=== PATIENT | female | born 1970 | race Caucasian/White ===

== ENCOUNTER → 2016-07-26 | Outpatient (CLI) | payer OTHER ==
--- NOTE | 2016-07-26 16:02 | MM ---
Reason for exam: history of breast augmentation, asymptomatic. Last mammogram was performed 5 months ago. History: Silicone gel implants in both breasts, September 2011. Took hormonal contraceptives for 1 year. Physical Findings: Nurse did not find any significant physical abnormalities on exam. MG 3D Diag Mammo Imp W/Cad KIRTI Bilateral CC, MLO, and ID view(s) were taken. Prior study comparison: February 19, 2016, right breast MG 3d diag mammo imp w/cad RT. July 21, 2015, bilateral MG 3d diag mammo imp w/cad KIRTI. The breast tissue is heterogeneously dense. This may lower the sensitivity of mammography. No suspicious calcifications are seen. There is chronic nodularity in the right breast, stable. Stable left axillary lymph node. These results were verbally communicated with the patient and result sheet given to the patient on 07/26/16. ASSESSMENT: Benign, BI-RAD 2 RECOMMENDATION: Routine screening mammogram of both breasts in 1 year.
== END | disposition home or self-care (01) ==
LOC: RADMAMWWP 14:53
PROVIDERS: ATTEND Obstetrics & Gynecology
DX: R92.8 Other abnormal and inconclusive findings on diagnostic imaging of breast (principal); Z98.82 Breast implant status
CPT/HCPCS: G0204; G0279

== ENCOUNTER → 2017-08-18 | Outpatient (CLI) | payer OTHER ==
--- NOTE | 2017-08-19 12:11 | MM ---
Reason for exam: screening (asymptomatic). Last mammogram was performed 1 year and 1 month ago. History: Silicone gel implants in both breasts, September 2011. Took hormonal contraceptives for 1 year. Physical Findings: A clinical breast exam by your physician is recommended on an annual basis and results should be correlated with mammographic findings. MG 3D Screen Mammo Imp/Cad Bilateral CC and MLO view(s) were taken. Prior study comparison: July 26, 2016, bilateral MG 3d diag mammo imp w/cad KIRTI. February 19, 2016, right breast MG 3d diag mammo imp w/cad RT. There are scattered fibroglandular densities. Finding: There is a 6 mm high density, obscured oval mass in the lower inner quadrant of the left breast consistent with 3cm possible cyst. There is a chronic nodularity bilaterally. New finding since July 26, 2016 and February 19, 2016. ASSESSMENT: Incomplete: need additional imaging evaluation, BI-RAD 0 RECOMMENDATION: Ultrasound of the left breast. [facility] will attempt to contact patient to return for ultrasound.
== END | disposition home or self-care (01) ==
LOC: RADMAMWWP 07:05
PROVIDERS: ATTEND Obstetrics & Gynecology
DX: Z12.31 Encounter for screening mammogram for malignant neoplasm of breast (principal)
CPT/HCPCS: 77063; 77067

== ENCOUNTER → 2017-08-27 | Outpatient (CLI) | payer OTHER ==
--- NOTE | 2017-08-28 11:00 | USB ---
Reason for exam: additional evaluation requested from abnormal screening. History: Silicone gel implants in both breasts, September 2011. Took hormonal contraceptives for 1 year. Physical Findings: Nurse did not find any significant physical abnormalities on exam. US Breast Workup LT Right complete breast ultrasound includes all four quadrants, the retroareolar region and axilla. Finding demonstrates a 1.0 x 0.5 x 0.8cm node at 1 o'clock, a 0.4 x 0.2 x 0.4cm mixed lesion at 3 o'clock, a 0.6 x 0.5 x 0.5cm cystic cluster at 4 o'clock and a 0.8 x 0.4 x 0.6cm cystic cluster at 8 o'clock. These results were verbally communicated with the patient and result sheet given to the patient on 08/27/17. ASSESSMENT: Probably benign, BI-RAD 3 RECOMMENDATION: Ultrasound of the left breast in 6 months.
== END | disposition home or self-care (01) ==
LOC: RADUSWWP 15:41
PROVIDERS: ATTEND Obstetrics & Gynecology
DX: R92.8 Other abnormal and inconclusive findings on diagnostic imaging of breast (principal)

== ENCOUNTER → 2018-09-28 | Outpatient (CLI) | payer OTHER ==
--- NOTE | 2018-09-28 07:39 | MM ---
Reason for exam: additional evaluation requested from prior study. Last mammogram was performed 1 year and 1 month ago. History: Silicone gel implants in both breasts, September 2011. Took hormonal contraceptives for 1 year. Physical Findings: Nurse did not find any significant physical abnormalities on exam. MG 3D Diag Mammo Imp W/Cad KIRTI Bilateral CC, MLO, and ID view(s) were taken. Prior study comparison: August 18, 2017, bilateral MG 3d screen mammo imp/cad. July 26, 2016, bilateral MG 3d diag mammo imp w/cad KIRTI. There is chronic nodularity bilaterally. No significant new findings when compared with previous films. These results were verbally communicated with the patient and result sheet given to the patient on 09/28/18. ASSESSMENT: Benign, BI-RAD 2 RECOMMENDATION: Follow-up diagnostic mammogram of both breasts in 1 year.
== END | disposition home or self-care (01) ==
LOC: RADMAMWWP 06:53
PROVIDERS: ATTEND Obstetrics & Gynecology
DX: R92.8 Other abnormal and inconclusive findings on diagnostic imaging of breast (principal)
CPT/HCPCS: 77062; 77066

== ENCOUNTER → 2020-01-17 | Outpatient (CLI) | payer OTHER ==
--- NOTE | 2020-01-17 14:31 | MM ---
Reason for exam: additional evaluation requested from prior study. Last mammogram was performed 1 year and 4 months ago. History: Silicone gel implants in both breasts, September 2011. Took hormonal contraceptives for 1 year. Physical Findings: Nurse did not find any significant physical abnormalities on exam. MG 3D Diag Mammo Imp W/Cad KIRTI Bilateral CC, MLO, and ID view(s) were taken. Prior study comparison: September 28, 2018, bilateral MG 3d diag mammo imp w/cad [facility]. August 18, 2017, bilateral MG 3d screen mammo imp/cad. The breast tissue is heterogeneously dense. This may lower the sensitivity of mammography. There is chronic nodularity bilaterally. There is no discrete abnormality. Benign bilateral axillary lymph nodes redemonstrated. Bilateral subpectoral implants redemonstrated. These results were verbally communicated with the patient and result sheet given to the patient on 01/17/20. ASSESSMENT: Benign, BI-RAD 2 RECOMMENDATION: Routine screening mammogram of both breasts in 1 year.
== END | disposition home or self-care (01) ==
LOC: RADMAMWWP 12-16 11:55
PROVIDERS: ATTEND Obstetrics & Gynecology
DX: R92.8 Other abnormal and inconclusive findings on diagnostic imaging of breast (principal)
CPT/HCPCS: 77062; 77066

== ENCOUNTER 2020-02-22 10:13 | Day surgery (SDC) | payer OTHER ==
[2020-02-21 11:41] VITALS: BMI 26.4
[~2020-02-22 10:13] MED LIST: LACTATED RINGERS 1,000 ML IV SCH; LIDOCAINE 1% (10MG/ML) FOR IV START INTRADERMA PRN
[2020-02-22 11:19] VITALS: TEMP 98.1
[2020-02-22] MEDS ORDERED: LIDOCAINE 1% INJ 10MG/ML (20 ML MDV) ONE (11:59)
[2020-02-22] MEDS ORDERED: PROPOFOL 10 MG/ML 20 ML VIAL IV ONE (11:59)
--- NOTE | 2020-02-22 12:30 | P.PCN ---
Date of Procedure: 02/22/20 Description of Procedure: BRIEF HISTORY: Patient is a 49-year-old female presenting for outpatient colonoscopy for screening for malignant neoplasm of the colon. No prior colonoscopy. No change in bowel habits or blood per rectum. PROCEDURE PERFORMED: Colonoscopy. PREOPERATIVE DIAGNOSIS: Screening for malignant neoplasm of the colon, no prior colonoscopy. ESTIMATED BLOOD LOSS: Minimal. IV sedation per Anesthesia. PROCEDURE: After informed consent was obtained, the patient, was brought into the endoscopy unit. IV sedation was administered by Anesthesia under continuous monitoring. Digital rectal examination was normal. Initially the Olympus CF-190 flexible video colonoscope was then inserted in the rectum, gradually advanced into the cecum without any difficulty. Careful examination was performed as the scope was gradually being withdrawn. Ileocecal valve and the appendiceal orifice were visualized and appeared normal. Prep was excellent. Mucosa of the cecum, ascending colon, transverse colon, descending colon, sigmoid colon, and rectum appeared normal, with scattered diverticula noted in the sigmoid colon. Normal- appearing terminal ileum. Colon was somewhat tortuous. Retroflexion was performed in the rectum and no lesions were seen. The patient tolerated the pr ocedure well. IMPRESSION: Normal-appearing colon from rectum to cecum. Mild sigmoid diverticulosis. RECOMMENDATIONS: Findings of this examination were discussed with the patient and her family. Okay to resume diet. Okay to resume medications. Recommendation is for repeat colonoscopy in 10 years for screening for malignant neoplasm of the colon, or sooner if signs or symptoms which warrant further evaluation developed.
[2020-02-22 12:52] VITALS: BP 122/81; PULSE 56; RESP 18
== END 2020-02-22 13:09 | disposition home or self-care (01) ==
LOC: ORWHC2ENDO 10:13
PROVIDERS: ATTEND Internal Medicine
DX: Z12.11 Encounter for screening for malignant neoplasm of colon (principal); K57.30 Diverticulosis of large intestine without perforation or abscess without bleeding; Q43.8 Other specified congenital malformations of intestine; K21.9 Gastro-esophageal reflux disease without esophagitis; Z87.891 Personal history of nicotine dependence; Z88.8 Allergy status to other drugs, medicaments and biological substances; Z98.890 Other specified postprocedural states; Z87.19 Personal history of other diseases of the digestive system; Z90.89 Acquired absence of other organs
CPT/HCPCS: 81025; J2001; J2704; G0121

== ENCOUNTER → 2021-04-16 | Outpatient (CLI) | payer OTHER ==
--- NOTE | 2021-04-17 10:48 | MM ---
Reason for exam: screening (asymptomatic). Last mammogram was performed 1 year and 3 months ago. History: Silicone gel implants in both breasts, September 2011. Took hormonal contraceptives for 1 year. Physical Findings: A clinical breast exam by your physician is recommended on an annual basis and results should be correlated with mammographic findings. MG 3D Screen Mammo Imp/Cad Bilateral CC, MLO, and ID view(s) were taken. Prior study comparison: January 17, 2020, bilateral MG 3d diag mammo imp w/cad KIRTI. September 28, 2018, bilateral MG 3d diag mammo imp w/cad KIRTI. The breast tissue is heterogeneously dense. This may lower the sensitivity of mammography. There is no discrete abnormality. Implants are intact. No significant changes when compared with prior studies. ASSESSMENT: Negative, BI-RAD 1 RECOMMENDATION: Routine screening mammogram of both breasts in 1 year.
== END | disposition home or self-care (01) ==
LOC: RADMAMWWP 16:08
PROVIDERS: ATTEND Obstetrics & Gynecology
DX: Z12.31 Encounter for screening mammogram for malignant neoplasm of breast (principal); Z98.82 Breast implant status
CPT/HCPCS: 77063; 77067

== ENCOUNTER → 2022-04-17 | Outpatient (CLI) | payer OTHER ==
--- NOTE | 2022-04-17 13:42 | MM ---
Reason for Exam: Screening (asymptomatic). Last mammogram was performed 1 year(s) and 1 month(s) ago. Patient History: Menarche at age 13. First Full-Term at age 22. Perimenopausal. Patient has history of breast feeding. Patient used Hormonal Contraceptives for 1 year. 09/2011, Bilateral Implants. Maternal grandmother had ovarian cancer at or over age 50. Daughter had ovarian cancer under age 50. Risk Values: Nany 5 year model risk: 0.9%. NCI Lifetime model risk: 7.9%. Prior Study Comparison: 02/19/2016 Right Diagnostic Mammogram, [facility]. 07/26/2016 Bilateral Diagnostic Mammogram, [facility]. 08/18/2017 Bilateral Screening Mammogram, [facility]. 09/28/2018 Bilateral Diagnostic Mammogram, [facility]. 01/17/2020 Bilateral Diagnostic Mammogram, [facility]. 04/16/2021 Bilateral Screening Mammogram, [facility]. Tissue Density: The breast tissue is heterogeneously dense. This may lower the sensitivity of mammography. Findings: Analyzed By CAD. There is no suspicious group of microcalcifications or new suspicious mass in either breast. Overall Assessment: Negative, BI-RAD 1 Management: Screening Mammogram of both breasts in 1 year. A clinical breast exam by your physician is recommended on an annual basis and results should be correlated with mammographic findings. [facility] will attempt to contact patient to return for supplemental views and ultrasound if indicated. Electronically signed and approved by: Augustin Brandon DO
== END | disposition home or self-care (01) ==
LOC: RADMAMWWP 12:56
PROVIDERS: ATTEND Obstetrics & Gynecology
DX: Z12.31 Encounter for screening mammogram for malignant neoplasm of breast (principal); Z98.82 Breast implant status
CPT/HCPCS: 77063; 77067

== ENCOUNTER → 2023-05-13 | Outpatient (CLI) | payer OTHER ==
--- NOTE | 2023-05-15 15:13 | MM ---
Reason for Exam: Screening (asymptomatic). Last screening mammogram was performed 12 month(s) ago. Patient History: Menarche at age 13. First Full-Term at age 22. Perimenopausal. Patient has history of breast feeding. Patient used Hormonal Contraceptives for 1 year. 09/2011, Bilateral Implants. Maternal grandmother had ovarian cancer, age 82. Daughter had ovarian cancer, age 28. Risk Values: Nany 5 year model risk: 0.9%. NCI Lifetime model risk: 7.8%. Prior Study Comparison: 01/17/2020 Bilateral Diagnostic Mammogram, [facility]. 04/16/2021 Bilateral Screening Mammogram, [facility]. 04/17/2022 Bilateral MG 3D screen mammo imp/cad., [facility]. Tissue Density: There are scattered fibroglandular densities. Findings: Analyzed By CAD. Bilateral breast implants appear intact. There is no suspicious group of microcalcifications or new suspicious mass. Overall Assessment: Negative, BI-RAD 1 Management: Screening Mammogram of both breasts in [address] [facility] will attempt to contact patient to return for supplemental views and ultrasound if indicated. Patient should continue monthly self-breast exams. A clinical breast exam by your physician is recommended on an annual basis. This exam should not preclude additional follow-up of suspicious palpable abnormalities. Note on Nany scores and lifetime risk: 1. A Nany score greater than 3% is considered moderate risk. If this is the case, consider specialist referral to assess eligibility for a risk reducing agent. 2. If overall lifetime risk for the development of breast cancer is 20% or higher, the patient may qualify for future screening with alternating mammogram and breast MRI. Electronically signed and approved by: Augustin Brandon DO
== END | disposition home or self-care (01) ==
LOC: RADMAMWWP 14:50
PROVIDERS: ATTEND Obstetrics & Gynecology
DX: Z12.31 Encounter for screening mammogram for malignant neoplasm of breast (principal); Z98.82 Breast implant status
CPT/HCPCS: 77063; 77067

== ENCOUNTER → 2024-05-25 | Outpatient (CLI) | payer OTHER ==
--- NOTE | 2024-05-25 10:35 | MM ---
Reason for Exam: Screening (asymptomatic). Last mammogram was performed 1 year(s) and 1 month(s) ago. Patient History: Menarche at age 13. First Full-Term at age 22. Perimenopausal. Patient has history of breast feeding. Patient used Hormonal Contraceptives for 1 year. 09/2011, Bilateral Implants. Maternal grandmother had ovarian cancer, age 82. Daughter had ovarian cancer, age 28. Risk Values: Nany 5 year model risk: 1.0%. NCI Lifetime model risk: 7.7%. Prior Study Comparison: 04/16/2021 Bilateral Screening Mammogram, [facility]. 04/17/2022 Bilateral MG 3D screen mammo imp/cad., [facility]. 05/13/2023 Bilateral MG 3D screen mammo imp/cad., [facility]. Tissue Density: There are scattered areas of fibroglandular density. Findings: Analyzed By CAD. There is no suspicious group of microcalcifications or new suspicious mass in either breast. Bilateral breast implants are in place. Overall Assessment: Benign, BI-RAD 2 Management: Screening Mammogram of both breasts in 1 year. . Patient should continue monthly self-breast exams. A clinical breast exam by your physician is recommended on an annual basis. This exam should not preclude additional follow-up of suspicious palpable abnormalities. Note on Nany scores and lifetime risk: 1. A Nany score greater than 3% is considered moderate risk. If this is the case, consider specialist referral to assess eligibility for a risk reducing agent. 2. If overall lifetime risk for the development of breast cancer is 20% or higher, the patient may qualify for future screening with alternating mammogram and breast MRI. [facility], , 05/25/2024 10:33 AM. Electronically signed and approved by: Uche Perry M.D. [facility]
== END | disposition home or self-care (01) ==
LOC: RADMAMWWP 08:12
PROVIDERS: ATTEND Obstetrics & Gynecology
DX: Z12.31 Encounter for screening mammogram for malignant neoplasm of breast (principal); R92.323 Mammographic fibroglandular density, bilateral breasts; Z92.0 Personal history of contraception
CPT/HCPCS: 77063; 77067